=== PATIENT | female | born 2000 | race Caucasian/White ===

== ENCOUNTER 2020-11-24 20:21 | Emergency (ER) | payer MEDICAID ==
[2020-11-24] MEDS ORDERED: Sodium Chloride 0.9% 10 ML Syringe FLUSH PRN (21:30)
[2020-11-24] MEDS ORDERED: Sodium Chloride 0.9% 2.5 ML Syringe FLUSH PRN (21:30)
[2020-11-24] MEDS ORDERED: Sodium Chloride 0.9% 1,000 ML IV ONE (21:30)
[2020-11-24] MEDS ORDERED: Ondansetron 4 MG/2 ML SDV IVPUSH ONE (21:30)
[2020-11-24 22:09] LABS: BLOOD UREA NITROGEN,BUN 8 mg/dL (7.0-18.0); CHLORIDE,CL 104 mmol/L (98-107); GLUCOSE RANDOM 87 mg/dL (74-106); POTASSIUM,K 3.3 mmol/L (3.5-5.1); SODIUM,NA 139 mmol/L (136-145)
--- NOTE | 2020-11-24 22:46 | EDM.PDOC ---
ED HPI GENERAL MEDICAL PROBLEM - General Chief Complaint: General Stated Complaint: NAUSEOUS, DIZZY Time Seen by Provider: 11/24/20 21:07 - History of Present Illness INITIAL COMMENTS - FREE TEXT/NARRATIVE: HISTORY AND PHYSICAL: History of present illness: This is a 20-year-old female who presents ER today secondary to feeling dizzy and having diarrhea for several days that ended today. Patient denies any recent fevers, shakes, chills, nausea, vomiting. Patient denies any chest pain or shortness of breath. Patient has abdominal pain or discomfort. Patient reports that she had a baby approximately 1 month ago and was told that her magnesium and potassium levels are low and she is taking supplementation at home. Patient does vape. Review of systems: As per history of present illness and below otherwise all systems reviewed and negative. Past medical history: As per history of present illness and as reviewed below otherwise noncontributory. Surgical history: As per history of present illness and as reviewed below otherwise noncontributory. Social history: No reported history of drug abuse. Family history: As per history of present illness and as reviewed below otherwise noncontributory. Physical exam: This patient was seen and evaluated during the 2019 SARS-CoV-2 novel coronavirus pandemic period. Community viral transmission is ongoing at time of this encounter and the emergency department is operating under pandemic response procedures. Constitutional: Patient is oriented to person, place, and time. Appears well- developed and well-nourished. No distress. HEENT: Moist mucous membranes Head: Normocephalic and atraumatic Eyes: Right eye exhibits no discharge. Left eye exhibits no discharge. No scleral icterus Neck: Normal range of motion. No tracheal deviation present. Cardiovascular: Normal rate and regular rhythm. Pulmonary: Effort normal, no respiratory distress. Abdominal: No distention Musculoskeletal: Normal range of motion Neurologic: Alert and oriented to person, place and time. Skin: [place], warm and dry. Psychiatric: Normal mood and affect. Behavior is normal. Judgment and thought content normal. Nursing note and vital signs have been reviewed Diagnostics: [] Therapeutics: [] Assessment and plan: 20-year-old presents ER today secondary to dizziness. Patient has had diarrhea for several days along with several other members of her family but these have resolved. Patient's labs are all within normal limits. Patient potassium level is 3.3 but she does have supplemental potassium at home. Patient has been given 1 L of NSS and she does feel better. Patient be given a prescription for Zofran and discharged home. Reassessment at the time of disposition demonstrates that the patient is in no acute distress. The patient has remained stable throughout the entire ED visit and is without objective evidence for acute process requiring urgent intervention or hospitalization. The patient is stable for discharge, counseling is provided as documented above, discussed symptomatic treatment and specific conditions for return. I have spoken with the patient/caregiver and discussed todays findings, in addition to providing specific details for the plan of care. Questions are answered and there is agreement with the plan. Definitive disposition and diagnosis as appropriate pending reevaluation and review of above. 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: Musculoskeletal History: Reports: None Neurological History: Reports: None Psychiatric History: Reports: None Endocrine/Metabolic History: Reports: None Insulin Pump Model and Business Services Director: None Hematologic History: Reports: None Immunologic History: Reports: None Oncologic (Cancer) History: Reports: None Dermatologic History: Reports: None - Infectious Disease History Infectious Disease History: Reports: None - Past Surgical History Head Surgeries/Procedures: Reports: None HEENT Surgical History: Reports: Oral Surgery Female Surgical History: Reports: Section Social & Family History - Tobacco Use Second Hand Smoke Exposure: No - Caffeine Use Caffeine Use: Reports: None - Recreational Drug Use Recreational Drug Use: No ED ROS GENERAL - Review of Systems Review Of Systems: See Below ED EXAM, GENERAL - Physical Exam Exam: See Below Course - Vital Signs Last Recorded V/S: Last Vital Signs Temp 98.0 F 11/24/20 21:04 Pulse 101 H 11/24/20 21:04 Resp 18 11/24/20 21:04 BP 125/86 11/24/20 21:04 Pulse Ox 97 11/24/20 21:04 - Orders/Labs/Meds Orders: Active Orders 24 hr Category Date Time Status EKG Documentation Completion [RC] AM Care 11/24/20 21:30 Active CBC WITH AUTO DIFF [HEME] Stat Lab 11/24/20 21:30 Ordered COMPREHENSIVE METABOLIC PN,CMP [CHEM] Stat Lab 11/24/20 21:30 Ordered HCG QUALITATIVE,URINE [URCHEM] Stat Lab 11/24/20 20:23 Ordered MAGNESIUM [CHEM] Stat Lab 11/24/20 21:30 Ordered UA RFX LISA AND CULT IF INDIC [URIN] Stat Lab 11/24/20 20:23 Ordered Ondansetron [Zofran] Med 11/24/20 21:30 Once 4 mg IVPUSH ONETIME ONE Sodium Chloride 0.9% [Normal Saline] 1,000 ml Med 11/24/20 21:30 Ordered IV .Bolus Sodium Chloride 0.9% [Saline Flush] Med 11/24/20 21:30 Ordered 10 ml FLUSH ASDIRECTED PRN Sodium Chloride 0.9% [Saline Flush] Med 11/24/20 21:30 Ordered 2.5 ml FLUSH ASDIRECTED PRN Saline Lock Insert [OM.PC] Stat Oth 11/24/20 21:30 Ordered Departure - Departure Time of Disposition: 22:44 Disposition: Home, Self-Care 01 Clinical Impression: Palpitations, Dehydration, Dizziness, Hypokalemia - Discharge Information Instructions: Hypokalemia, Dehydration, Adult, [id number], Palpitations, [id number] Referrals: PCP,None [Primary Care Provider] - Additional Instructions: Your labs in the ER today were all within normal limits. Your EKG did not show any significant abnormalities. Your potassium level was 3.3 so I would rec ommend that you take an extra dose of your potassium pills at home. Your magnesium level was at the lower limits of normal but within the normal range. Some of your symptoms may be related to some dehydration. Please continue to encourage fluids and make an appointment to follow-up with your doctor the next week. The following information is given to patients seen in the emergency department who are being discharged to home. This information is to outline your options for follow-up care. We provide all patients seen in our emergency department with a follow-up referral. The need for follow-up, as well as the timing and circumstances, are variable depending upon the specifics of your emergency department visit. If you don't have a primary care physician on staff, we will provide you with a referral. We always advise you to contact your personal physician following an emergency department visit to inform them of the circumstance of the visit and for follow-up with them and/or the need for any referrals to a consulting specialist. The emergency department will also refer you to a specialist when appropriate. This referral assures that you have the opportunity for follow-up care with a specialist. All of these measure are taken in an effort to provide you with optimal care, which includes your follow-up. Under all circumstances we always encourage you to contact your private physician who remains a resource for coordinating your care. When calling for follow-up care, please make the office aware that this follow-up is from your recent emergency room visit. If for any reason you are refused follow-up, please contact the [facility] at and asked to speak to the emergency department charge nurse. [facility] - Primary Care [address] [place] [address] [id number] [address] [id number] Sepsis Event Note (ED) - Evaluation Sepsis Screening Result: No Definite Risk - Focused Exam Vital Signs: Vital Signs Temp Pulse Resp BP Pulse Ox 11/24/20 21:04 98.0 F 101 H 18 125/86 97 - My Orders Last 24 Hours: My Active Orders 11/24/20 21:30 EKG Documentation Completion [RC] AM CBC WITH AUTO DIFF [HEME] Stat COMPREHENSIVE METABOLIC PN,CMP [CHEM] Stat MAGNESIUM [CHEM] Stat Ondansetron [Zofran] 4 mg IVPUSH ONETIME ONE Sodium Chloride 0.9% [Normal Saline] 1,000 ml IV .Bolus Sodium Chloride 0.9% [Saline Flush] 10 ml FLUSH ASDIRECTED PRN Sodium Chloride 0.9% [Saline Flush] 2.5 ml FLUSH ASDIRECTED PRN Saline Lock Insert [OM.PC] Stat - Assessment/Plan Last 24 Hours: My Active Orders 11/24/20 21:30 EKG Documentation Completion [RC] AM CBC WITH AUTO DIFF [HEME] Stat COMPREHENSIVE METABOLIC PN,CMP [CHEM] Stat MAGNESIUM [CHEM] Stat Ondansetron [Zofran] 4 mg IVPUSH ONETIME ONE Sodium Chloride 0.9% [Normal Saline] 1,000 ml IV .Bolus Sodium Chloride 0.9% [Saline Flush] 10 ml FLUSH ASDIRECTED PRN Sodium Chloride 0.9% [Saline Flush] 2.5 ml FLUSH ASDIRECTED PRN Saline Lock Insert [OM.PC] Stat
--- NOTE | 2020-11-25 01:21 | PCM.EKG ---
#1 Interpretation EKG Interpretation Comments: EKG: As interpreted by ER physician: Luz: Nonspecific ST-T wave abnormalities Normal axis No evidence of ST elevation [place] Normal sinus rhythm heart rate of 90
== END 2020-11-24 23:03 | disposition home or self-care (01) ==
LOC: MW.ED 20:21
DX: R42 Dizziness and giddiness (principal); R00.2 Palpitations; E86.0 Dehydration; E87.6 Hypokalemia
CPT/HCPCS: 36415; 80053; 81001; 81025; 83735; 85025; 93005; 96374; 99285; J2405; J7030

== ENCOUNTER 2021-04-14 10:40 | Emergency (ER) | payer MEDICAID ==
[2021-04-14] MEDS ORDERED: Sodium Chloride 0.9% 1,000 ML IV ONE (11:08)
--- NOTE | 2021-04-14 11:26 | EDM.PDOC ---
ED HPI GENERAL MEDICAL PROBLEM - General Chief Complaint: Respiratory Problem Stated Complaint: COVID SYMPTOMS Time Seen by Provider: 04/14/21 10:45 Source of Information: Reports: Patient History Limitations: Reports: No Limitations - History of Present Illness INITIAL COMMENTS - FREE TEXT/NARRATIVE: HISTORY AND PHYSICAL: History of present illness: Patient is a 20-year-old female, who is currently 11 weeks in gestation, who presents emergency room today with concern of viral syndrome including stuffy/runny nose, sore throat, and cough x2 days. Patient states that she has also been more fatigued and has had decreased oral intake secondary to nausea. Patient states that she has had 1 ultrasound confirming dating with her CARDIAC CATHETERIZATION TECHNICIAN provider back home in [place]. Patient states she plans to do her care in [place] although she is currently living in [place] will go back and forth. Patient denies any abdominal cramping or vaginal bleeding. Patient states that she did have significant hypokalemia with her other pregnancies so is also concerned about her electrolyte status being her decreased oral intake and fluid intake. Patient denies fever, chills, chest pain, shortness of breath. Denies headache, neck stiff ness, change in vision, syncope, or near syncope. Denies vomiting, abdominal pain, diarrhea, constipation, or dysuria. Has not noted any blood in urine or stool. Patient has been eating and drinking appropriately. Review of systems: As per history of present illness and below otherwise all systems reviewed and negative. Past medical history: As per history of present illness and as reviewed below otherwise noncontributory. Surgical history: As per history of present illness and as reviewed below otherwise noncontributory. Social history: See social history for further information Family history: As per history of present illness and as reviewed below otherwise noncontributory. Physical exam: General: Patient is alert, oriented, and in no acute distress. Patient sitting comfortably on exam table. Mildly tachycardic 105 on exam otherwise vitally stable and reviewed by me. HEENT: Bilateral nasal congestion. Otherwise, atraumatic, normocephalic, pupils equal and reactive bilaterally, negative for conjunctival pallor or scleral icterus, mucous membranes moist, throat clear, neck supple, nontender, trachea midline. No drooling or trismus noted. No meningeal signs. No hot potato voice noted. Lungs: Dry cough on exam. Otherwise, clear to auscultation, breath sounds equal bilaterally, chest nontender. Heart: S1S2, regular rate and rhythm without overt murmur Abdomen: Soft, nondistended, nontender. Negative for masses or hepatosplenomegaly. Negative for costovertebral tenderness. Pelvis: Stable nontender. Genitourinary: Deferred. Rectal: Deferred. Skin: Intact, warm, dry. No lesions or rashes noted. Extremities: Atraumatic, negative for cords or calf pain. Neurovascular unremarkable. Neuro: Awake, alert, oriented. Cranial nerves II through XII unremarkable. Cerebellum unremarkable. Motor and sensory unremarkable throughout. Exam nonfocal. Medical Decision Making: Patient is a 20-year-old female, currently 11 weeks in gestation with known intrauterine , who presents emergency room today with concern of viral syndrome. Patient does have a health history of significant hypokalemia with prior and is also concerned about this today. Upon arrival to the ED, patient is mildly tachycardic 105 on exam, is otherwise vitally stable and well- appearing on exam. Patient does not have any abdominal tenderness. Will obtain basic lab work given patient's electrolyte history, obtain Covid/influenza swab, will obtain FHT and reassess patient. Bedside ultrasound shows a heart tone at 163 and active fetus. CBC does show leukopenia with white blood cell count of 1.56, percent neutrophils at 61, with percent bands at 5 with an ANC calculation read about 1000. CMP does show mild hypokalemia at 3.3, and hypomagnesium at 1.7. Other mild derangements of CBC and CMP are unremarkable. Urinalysis is clear of infection. COVID-19 is positive. Influenza negative. Strep negative. Patient does not have a fever on initial triage, however I did go obtain an oral temperature and patient is 101. I am concerned of neutropenic fever. Did obtain lactate and blood cultures x2. I did call and speak to the infectious disease provider on-call for [facility], Dr. Hoyos, and thoroughly discussed patient's case. He states that patient does not have neutropenic fever and that her lab work is all a direct result of the COVID-19 infection. He states that at this point, the conversation is monoclonal antibodies versus remdesivir infusion due to Covid in her . He does not want patient to take antibiotics and states that this is not indicated and states no further admission required and is recommending discharge home with close follow-up. Upon reevaluation of patient, she remains vitally stable and comfortable throughout stay in ED. I did discuss my conversation with the infectious disease provider Dr. Hoyos. Voices understanding and is agreeable to plan of care. Denies any further questions or concerns at this time. I also discussed patient's mild hypokalemia and mild hypomagnesium and states that she has these medications already available to her by her CARDIAC CATHETERIZATION TECHNICIAN provider just waiting to start them. She plans to call her CARDIAC CATHETERIZATION TECHNICIAN provider following discharge discussing taking these medications. Strict return precautions thoroughly discussed with patient. Discussed importance of follow-up with a primary care provider and her CARDIAC CATHETERIZATION TECHNICIAN provider. Diagnostics: CBC, CMP, COVID/Flu, Magnesium, Strep Therapeutics: NS Prescription: None Impression: COVID-19 viral infection Intrauterine , 11 weeks Leukopenia, secondary to acute COVID-19 viral infection Neutropenia, secondary to acute COVID-19 viral infection Plan: 1. Your COVID-19 screening is positive. That means you do have the coronavirus and are considered contagious. Your vital signs and oxygen saturation are well enough that you were able to monitor your symptoms at home. Continue to monitor for trouble breathing, new confusion or inability to arouse, bluish lips or face or any of the other symptoms we discussed -if this occurs please return to the emergency room.Continue to monitor your health at home for worsening symptoms so that you can be taken care of and treated quickly if needed. 2. Please self quarantine until 10 days have passed since your symptoms began AND you are fever free (<100.4 degrees fahrenheit) for 24 hours without the use of fever-reducing medications AND symptoms are improving. You should restrict activities outside of your home, except for getting medical care. Do not go to work, school, or public areas. Avoid using public transportation, ride-sharing, or taxis. Inform any persons that you have been in contact with since you started becoming symptomatic that you have tested positive; they should be made aware and take the appropriate steps as needed. 3. You may alternate Tylenol and ibuprofen as needed for pain and fever management. 4. The [facility] department will be calling you and following up with you. The [place] COVID 19 Hotline phone number , They are open Sunday - Sunday 7am - 7pm. Follow up with your primary care provider for re-evaluation and re-testing after quarantine and discuss when you should be seen. 6. For more specific guidelines regarding isolation/quarantine please visit this website. https ://www.health.[place].gov/sites/www/files/documents/Files/ARIANNA/coronavirus/Factsheet_f or_People_With_COVID-19.pdf Definitive disposition and diagnosis as appropriate pending reevaluation and review of above. back Pain Score (Numeric/FACES): 3 - Related Data Allergies Allergy/AdvReac Type Severity Reaction Status Date / Time No Known Allergies Allergy Verified 04/14/21 12:23 Home Meds: Home Meds . [No Known Home Meds] 04/14/21 [History] Past Medical History HEENT History: Reports: None Cardiovascular History: Reports: None Respiratory History: Reports: Asthma Gastrointestinal History: Reports: None Genitourinary History: Reports: None CARDIAC CATHETERIZATION TECHNICIAN History: Reports: Musculoskeletal History: Reports: None Neurological History: Reports: None Psychiatric History: Reports: None Endocrine/Metabolic History: Reports: None Insulin Pump Model and Powder Guard: None Hematologic History: Reports: Other (See Below) Other Hematologic History: Electrolyte imbalance with last (K, Mg) Immunologic History: Reports: None Oncologic (Cancer) History: Reports: None Dermatologic History: Reports: None - Infectious Disease History Infectious Disease History: Reports: None - Past Surgical History Head Surgeries/Procedures: Reports: None HEENT Surgical History: Reports: Oral Surgery Female Surgical History: Reports: Section Social & Family History - Family History Endocrine/Metabolic: Reports: Diabetes, Type I Oncologic: Reports: Breast - Caffeine Use Caffeine Use: Reports: Energy Drinks - Recreational Drug Use Recreational Drug Use: No ED ROS GENERAL - Review of Systems Review Of Systems: Comprehensive ROS is negative, except as noted in HPI. ED EXAM, GENERAL - Physical Exam Exam: See Below (see dictation) Course - Vital Signs Last Recorded V/S: Last Vital Signs Temp 99.1 F 04/14/21 14:14 Pulse 100 04/14/21 14:14 Resp 18 04/14/21 14:14 BP 110/68 04/14/21 14:14 Pulse Ox 100 04/14/21 14:14 - Orders/Labs/Meds Orders: Active Orders 24 hr Category Date Time Status CULTURE BLOOD [BC] Stat Lab 04/14/21 13:08 Received CULTURE BLOOD [BC] Stat Lab 04/14/21 13:14 Received Blood Culture x2 Reflex Set [OM.PC] Stat Oth 04/14/21 13:00 Ordered Labs: Laboratory Tests 04/14/21 04/14/21 04/14/21 Range/Units 10:47 11:34 11:34 WBC 1.56 L (4.0-11.0) K/uL RBC 4.67 (4.30-5.90) M/uL Hgb 12.0 (12.0-16.0) g/dL Hct 36.0 (36.0-46.0) % MCV 77.1 L (80.0-98.0) fL MCH 25.7 L (27.0-32.0) pg MCHC 33.3 (31.0-37.0) g/dL RDW Std Deviation 42.3 (28.0-62.0) fl RDW Coeff of Hever 15 (11.0-15.0) % Plt Count 186 (150-400) K/uL MPV 9.30 (7.40-12.00) fL Add Manual Diff YES Neutrophils % (Manual) 61 (48.0-80.0) % Band Neutrophils % 5 % Lymphocytes % (Manual) 26 (16.0-40.0) % Monocytes % (Manual) 7 (0.0-15.0) % Basophils % (Manual) 1 (0.0-1.5) % Nucleated RBC % 0.0 /100WBC Absolute Seg Neuts 1.0 L (1.4-5.7) Band Neutrophils # 0.1 Lymphocytes # (Manual) 0.4 L (0.6-2.4) Monocytes # (Manual) 0.1 (0.0-0.8) Basophils # (Manual) 0.0 (0.0-0.1) Nucleated RBCs # 0 K/uL Sodium 136 (136-145) mmol/L Potassium 3.3 L (3.5-5.1) mmol/L Chloride 99 (98-107) mmol/L Carbon Dioxide 23.1 (21.0-32.0) mmol/L BUN 7 (7.0-18.0) mg/dL Creatinine 0.6 (0.6-1.0) mg/dL Est Cr Clr Drug Dosing 117.31 mL/min Estimated GFR (MDRD) > 60.0 ml/min Glucose 102 (74-106) mg/dL Lactic Acid (0.4-2.0) mmol/L Calcium 8.8 (8.5-10.1) mg/dL Magnesium (1.8-2.4) mg/dL Total Bilirubin 0.2 (0.2-1.0) mg/dL AST 25 (15-37) IU/L ALT 36 (14-63) IU/L Alkaline Phosphatase 59 (46-116) U/L Total Protein 7.2 (6.4-8.2) g/dL Albumin 3.3 L (3.4-5.0) g/dL Globulin 3.9 (2.6-4.0) g/dL Albumin/Globulin Ratio 0.9 (0.9-1.6) Urine Color Urine Appearance Urine pH (5.0-8.0) Ur Specific [place] (1.001-1.035) Urine Protein (NEGATIVE) mg/dL Urine Glucose (UA) (NEGATIVE) mg/dL Urine Ketones (NEGATIVE) mg/dL Urine Occult Blood (NEGATIVE) Urine Nitrite (NEGATIVE) Urine Bilirubin (NEGATIVE) Urine Urobilinogen (<2.0) EU/dL Ur Leukocyte Esterase (NEGATIVE) Influenza Type A RNA NEGATIVE (NEGATIVE) Influenza Type B RNA NEGATIVE (NEGATIVE) SARS-CoV-2 RNA (SABA) POSITIVE H (NEGATIVE) Group A Strep (PCR) (NOT DETECT) 04/14/21 04/14/21 04/14/21 Range/Units 11:34 11:38 12:21 WBC (4.0-11.0) K/uL RBC (4.30-5.90) M/uL Hgb (12.0-16.0) g/dL Hct (36.0-46.0) % MCV (80.0-98.0) fL MCH (27.0-32.0) pg MCHC (31.0-37.0) g/dL RDW Std Deviation (28.0-62.0) fl RDW Coeff of Hever (11.0-15.0) % Plt Count (150-400) K/uL MPV (7.40-12.00) fL Add Manual Diff Neutrophils % (Manual) (48.0-80.0) % Band Neutrophils % % Lymphocytes % (Manual) (16.0-40.0) % Monocytes % (Manual) (0.0-15.0) % Basophils % (Manual) (0.0-1.5) % Nucleated RBC % /100WBC Absolute Seg Neuts (1.4-5.7) Band Neutrophils # Lymphocytes # (Manual) (0.6-2.4) Monocytes # (Manual) (0.0-0.8) Basophils # (Manual) (0.0-0.1) Nucleated RBCs # K/uL Sodium (136-145) mmol/L Potassium (3.5-5.1) mmol/L Chloride (98-107) mmol/L Carbon Dioxide (21.0-32.0) mmol/L BUN (7.0-18.0) mg/dL Creatinine (0.6-1.0) mg/dL Est Cr Clr Drug Dosing mL/min Estimated GFR (MDRD) ml/min Glucose (74-106) mg/dL Lactic Acid (0.4-2.0) mmol/L Calcium (8.5-10.1) mg/dL Magnesium 1.7 L (1.8-2.4) mg/dL Total Bilirubin (0.2-1.0) mg/dL AST (15-37) IU/L ALT (14-63) IU/L Alkaline Phosphatase (46-116) U/L Total Protein (6.4-8.2) g/dL Albumin (3.4-5.0) g/dL Globulin (2.6-4.0) g/dL Albumin/Globulin Ratio (0.9-1.6) Urine Color YELLOW Urine Appearance CLEAR Urine pH 6.5 (5.0-8.0) Ur Specific [place] 1.010 (1.001-1.035) Urine Protein NEGATIVE (NEGATIVE) mg/dL Urine Glucose (UA) NEGATIVE (NEGATIVE) mg/dL Urine Ketones NEGATIVE (NEGATIVE) mg/dL Urine Occult Blood NEGATIVE (NEGATIVE) Urine Nitrite NEGATIVE (NEGATIVE) Urine Bilirubin NEGATIVE (NEGATIVE) Urine Urobilinogen 0.2 (<2.0) EU/dL Ur Leukocyte Esterase NEGATIVE (NEGATIVE) Influenza Type A RNA (NEGATIVE) Influenza Type B RNA (NEGATIVE) SARS-CoV-2 RNA (SABA) (NEGATIVE) Group A Strep (PCR) NOT DETECTED (NOT DETECT) 04/14/21 Range/Units 13:14 WBC (4.0-11.0) K/uL RBC (4.30-5.90) M/uL Hgb (12.0-16.0) g/dL Hct (36.0-46.0) % MCV (80.0-98.0) fL MCH (27.0-32.0) pg MCHC (31.0-37.0) g/dL RDW Std Deviation (28.0-62.0) fl RDW Coeff of Hever (11.0-15.0) % Plt Count (150-400) K/uL MPV (7.40-12.00) fL Add Manual Diff Neutrophils % (Manual) (48.0-80.0) % Band Neutrophils % % Lymphocytes % (Manual) (16.0-40.0) % Monocytes % (Manual) (0.0-15.0) % Basophils % (Manual) (0.0-1.5) % Nucleated RBC % /100WBC Absolute Seg Neuts (1.4-5.7) Band Neutrophils # Lymphocytes # (Manual) (0.6-2.4) Monocytes # (Manual) (0.0-0.8) Basophils # (Manual) (0.0-0.1) Nucleated RBCs # K/uL Sodium (136-145) mmol/L Potassium (3.5-5.1) mmol/L Chloride (98-107) mmol/L Carbon Dioxide (21.0-32.0) mmol/L BUN (7.0-18.0) mg/dL Creatinine (0.6-1.0) mg/dL Est Cr Clr Drug Dosing mL/min Estimated GFR (MDRD) ml/min Glucose (74-106) mg/dL Lactic Acid 0.6 (0.4-2.0) mmol/L Calcium (8.5-10.1) mg/dL Magnesium (1.8-2.4) mg/dL Total Bilirubin (0.2-1.0) mg/dL AST (15-37) IU/L ALT (14-63) IU/L Alkaline Phosphatase (46-116) U/L Total Protein (6.4-8.2) g/dL Albumin (3.4-5.0) g/dL Globulin (2.6-4.0) g/dL Albumin/Globulin Ratio (0.9-1.6) Urine Color Urine Appearance Urine pH (5.0-8.0) Ur Specific [place] (1.001-1.035) Urine Protein (NEGATIVE) mg/dL Urine Glucose (UA) (NEGATIVE) mg/dL Urine Ketones (NEGATIVE) mg/dL Urine Occult Blood (NEGATIVE) Urine Nitrite (NEGATIVE) Urine Bilirubin (NEGATIVE) Urine Urobilinogen (<2.0) EU/dL Ur Leukocyte Esterase (NEGATIVE) Influenza Type A RNA (NEGATIVE) Influenza Type B RNA (NEGATIVE) SARS-CoV-2 RNA (SABA) (NEGATIVE) Group A Strep (PCR) (NOT DETECT) Meds: Medications Discontinued Medications Generic Name Dose Route Start Last Admin Trade Name Freq PRN Reason Stop Dose Admin Sodium Chloride 1,000 mls @ 999 mls/hr 04/14/21 11:08 04/14/21 11:33 Normal Saline IV 04/14/21 12:08 999 mls/hr STAT ONE Administration Potassium Chloride 40 meq 04/14/21 13:19 Potassium Chloride 20 Meq Tab.Er PO 04/14/21 13:20 ONETIME ONE Departure - Departure Time of Disposition: 14:25 Disposition: Home, Self-Care 01 Clinical Impression: COVID-19 virus infection, Intrauterine , Neutropenia, Leukopenia - Discharge Information Referrals: PCP,Not In Area [Primary Care Provider] - Forms: ED Department Discharge Additional Instructions: The following information is given to patients seen in the emergency department who are being discharged to home. This information is to outline your options for follow-up care. We provide all patients seen in our emergency department with a follow-up referral. The need for follow-up, as well as the timing and circumstances, are variable depending upon the specifics of your emergency department visit. If you don't have a primary care physician on staff, we will provide you with a referral. We always advise you to contact your personal physician following an emergency department visit to inform them of the circumstance of the visit and for follow-up with them and/or the need for any referrals to a consulting specialist. The emergency department will also refer you to a specialist when appropriate. This referral assures that you have the opportunity for follow-up care with a specialist. All of these measure are taken in an effort to provide you with optimal care, which includes your follow-up. Under all circumstances we always encourage you to contact your private physician who remains a resource for coordinating your care. When calling for follow-up care, please make the office aware that this follow-up is from your recent emergency room visit. If for any reason you are refused follow-up, please contact the [facility] Emergency Department at and asked to speak to the emergency department charge nurse. [facility] [address] [place] [address] 1. Your COVID-19 screening is positive. That means you do have the coronavirus and are considered contagious. Your vital signs and oxygen saturation are well enough that you were able to monitor your symptoms at home. Continue to monitor for trouble breathing, new confusion or inability to arouse, bluish lips or face or any of the other symptoms we discussed -if this occurs please return to the emergency room.Continue to monitor your health at home for worsening symptoms so that you can be taken care of and treated quickly if needed. 2. Please self quarantine until 10 days have passed since your symptoms began AND you are fever free (<100.4 degrees fahrenheit) for 24 hours without the use of fever-reducing medications AND symptoms are improving. You should restrict activities outside of your home, except for getting medical care. Do not go to work, school, or public areas. Avoid using public transportation, ride-sharing, or taxis. Inform any persons that you have been in contact with since you started becoming symptomatic that you have tested positive; they should be made aware and take the appropriate steps as needed. 3. You may alternate Tylenol and ibuprofen as needed for pain and fever management. 4. The [facility] department will be calling you and following up with you. The [place] COVID 19 Hotline phone number , They are open Sunday - Sunday 7am - 7pm. Follow up with your primary care provider for re-evaluation and re-testing after quarantine and discuss when you should be seen. 6. For more specific guidelines regarding isolation/quarantine please visit this website. https://www.health.[place]/sites/www/files/documents/Files/ARIANNA/coronavirus/Factsheet_for_People_With_COVI D-19.pdf Sepsis Event Note (ED) - Evaluation Sepsis Screening Result: No Definite Risk - Focused Exam Vital Signs: Vital Signs Temp Temp Pulse Resp BP Pulse Ox 04/14/21 14:14 99.1 F 100 18 110/68 100 04/14/21 14:01 103 H 18 97/67 100 04/14/21 13:46 116 H 18 108/74 99 04/14/21 13:42 100.0 F 116 H 18 108/74 100 04/14/21 13:27 99 123/70 99 04/14/21 13:12 99.4 F 107 H 18 123/70 100 04/14/21 12:07 98 18 118/68 96 04/14/21 11:36 98.8 F 04/14/21 10:47 97.6 F 109 H 18 113/64 99 - My Orders Last 24 Hours: My Active Orders 04/14/21 13:00 Blood Culture x2 Reflex Set [OM.PC] Stat 04/14/21 13:08 CULTURE BLOOD [BC] Stat 04/14/21 13:14 CULTURE BLOOD [BC] Stat - Assessment/Plan Last 24 Hours: My Active Orders 04/14/21 13:00 Blood Culture x2 Reflex Set [OM.PC] Stat 04/14/21 13:08 CULTURE BLOOD [BC] Stat 04/14/21 13:14 CULTURE BLOOD [BC] Stat
[2021-04-14 11:42] LABS: CORONAVIRUS COVID-19 NAA POSITIVE (NEGATIVE); INFLUENZA A NAA NEGATIVE (NEGATIVE); INFLUENZA B NAA NEGATIVE (NEGATIVE)
[2021-04-14 12:14] LABS: BLOOD UREA NITROGEN,BUN 7 mg/dL (7.0-18.0); CARBON DIOXIDE,CO2 23.1 mmol/L (21.0-32.0); CHLORIDE,CL 99 mmol/L (98-107); GLUCOSE RANDOM 102 mg/dL (74-106); POTASSIUM,K 3.3 mmol/L (3.5-5.1); SODIUM,NA 136 mmol/L (136-145)
[2021-04-14] MEDS ORDERED: Potassium Chloride 20 MEQ Tab.ER PO ONE (13:19)
== END 2021-04-14 14:52 | disposition home or self-care (01) ==
LOC: MW.ED 10:40
DX: O98.511 Other viral diseases complicating pregnancy, first trimester (principal); O99.111 Other diseases of the blood and blood-forming organs and certain disorders involving the immune mechanism complicating pregnancy, first trimester; U07.1 COVID-19; D70.9 Neutropenia, unspecified; R50.81 Fever presenting with conditions classified elsewhere; Z3A.11 11 weeks gestation of pregnancy
CPT/HCPCS: 0240U; 36415; 80053; 81003; 83605; 83735; 85025; 87040; 87651; 99283; J7030

== ENCOUNTER 2022-08-10 21:43 | Emergency (ER) | payer BC, MEDICAID ==
[2022-08-10] MEDS ORDERED: Ibuprofen 400 MG Tab PO ONE (22:37)
[2022-08-10] MEDS ORDERED: Acetaminophen 325 MG Tab PO ONE (22:37)
== END 2022-08-10 23:19 | disposition home or self-care (01) ==
LOC: MW.ED 21:43
DX: S90.02XA Contusion of left ankle, initial encounter (principal); W10.8XXA Fall (on) (from) other stairs and steps, initial encounter
CPT/HCPCS: 73590-26-LT; 73590-LT; 73610-26-LT; 73610-LT; 99282; 99283; A9270-GY

== ENCOUNTER 2024-03-27 11:58 | Emergency (ER) | payer BC ==
[2024-03-27] MEDS: Sodium Chloride 0.9% 1,000 ML IV ONE (12:25)
[2024-03-27 12:35] LABS: BASOPHILS ABSOLUTE AUTO 0.04 K/uL (0.00-0.20); BASOPHILS PERCENT AUTO 0.9 % (0.0-1.0); EOSINOPHILS PERCENT AUTO 9.2 % (0.0-6.0); HEMOGLOBIN 12.7 g/dL (12.0-16.0); IMMATURE GRAN ABSOLUTE AUTO 0.01 K/uL (0.00-0.05); IMMATURE GRAN PERCENT AUTO 0.2 % (0.0-0.4); LYMPHOCYTES PERCENT AUTO 22.9 % (24.0-44.0); MEAN CORPUSCULAR HEMOGLOBIN 27.4 pg (28.0-32.0); MEAN CORPUSCULAR HGB CONC 33.4 g/dL (32.0-36.0); MEAN CORPUSCULAR VOLUME 82.1 fL (83.0-99.0); MEAN PLATELET VOLUME 9.2 fL (9.4-12.3); MONOCYTES ABSOLUTE AUTO 0.33 K/uL (0.00-0.80); MONOCYTES PERCENT AUTO 7.6 % (0.0-8.0); NEUTROPHILS ABSOLUTE AUTO 2.58 K/uL (1.80-7.70); NEUTROPHILS PERCENT AUTO 59.2 % (41.0-71.0); PLATELET COUNT,PLT 219 K/uL (150-400); RED BLOOD CELL COUNT 4.63 M/uL (4.10-5.30); WHITE BLOOD CELL COUNT,WBC 4.36 K/uL (3.9-11.3)
[2024-03-27 12:36] LABS: APPEARANCE,URINE CLEAR; BILIRUBIN,URINE NEGATIVE (NEGATIVE); COLOR,URINE YELLOW; GLUCOSE,URINE NEGATIVE (NEGATIVE); KETONES,URINE NEGATIVE (NEGATIVE); LEUKOCYTE ESTERASE,URINE NEGATIVE (NEGATIVE); NITRITE,URINE NEGATIVE (NEGATIVE); OCCULT BLOOD,URINE MODERATE (NEGATIVE); PH,URINE 6.5 (5.0-8.0); PROTEIN,URINE NEGATIVE (NEGATIVE); UROBILINOGEN,URINE 0.2 EU/dL (<2.0)
[2024-03-27 12:42] LABS: BACTERIA,URINE FEW (NEGATIVE); EPITHELIAL CELLS,URINE OCCASIONAL (NONE-FEW); WBC,URINE 0-2 (0-5/HPF)
[2024-03-27 13:09] LABS: ALANINE AMINOTRANSFERASE,ALT 28 IU/L (14-63); ALBUMIN 3.7 g/dL (3.4-5.0); ALKALINE PHOSPHATASE 82 U/L (46-116); ASPARTATE AMNIOTRANSFERASE,AST 23 IU/L (15-37); BILIRUBIN TOTAL 0.3 mg/dL (0.2-1.0); BLOOD UREA NITROGEN,BUN 7 mg/dL (7.0-18.0); CALCIUM 8.8 mg/dL (8.5-10.1); CHLORIDE,CL 105 mmol/L (98-107); CREATININE 0.8 mg/dL (0.6-1.0); EST CRCL DRUG DOSING (CG) 81.82 mL/min; GLUCOSE RANDOM 80 mg/dL (74-106); POTASSIUM,K 3.7 mmol/L (3.5-5.1); PROTEIN TOTAL,TP 7.3 g/dL (6.4-8.2); SODIUM,NA 142 mmol/L (136-145)
[2024-03-27 13:10] LABS: ESTIMATED GFR 105 mL/min (>60); HCG QUANTITATIVE < 1.0 mIU/mL
== END 2024-03-27 14:21 | disposition home or self-care (01) ==
LOC: MW.ED 11:58
DX: N92.0 Excessive and frequent menstruation with regular cycle (principal); J45.909 Unspecified asthma, uncomplicated; F17.210 Nicotine dependence, cigarettes, uncomplicated; Z79.51 Long term (current) use of inhaled steroids; Z79.899 Other long term (current) drug therapy; Z75.8 Other problems related to medical facilities and other health care
CPT/HCPCS: 36415; 76830; 80053; 81001; 84702; 85025; 96360; 96361; 99284; J7030